=== PATIENT | female | born 2000 | race Two or more races ===

== ENCOUNTER 2022-11-27 11:52 | Emergency (ER) | payer OTHER ==
[~2022-11-27] VITALS: Ht 162.6 cm; Wt 77.1 kg
== END 2022-11-27 15:20 | disposition home or self-care (01) ==
LOC: ER 11:52
DX: O20.9 Hemorrhage in early pregnancy, unspecified (principal); Z3A.08 8 weeks gestation of pregnancy; Z88.6 Allergy status to analgesic agent

== ENCOUNTER 2023-05-27 14:26 | Emergency (ER) | payer OTHER ==
[~2023-05-27] VITALS: Ht 162.6 cm; Wt 69.9 kg
== END 2023-05-27 17:56 | disposition home or self-care (01) ==
LOC: ER 14:26
DX: O99.512 Diseases of the respiratory system complicating pregnancy, second trimester (principal); J06.9 Acute upper respiratory infection, unspecified; Z3A.17 17 weeks gestation of pregnancy; Z20.822 Contact with and (suspected) exposure to COVID-19; Z88.6 Allergy status to analgesic agent